=== PATIENT | female | born 1950 | race Caucasian/White ===

== ENCOUNTER 2018-06-16 07:36 | Outpatient (CLI) | payer MEDICARE, BC ==
--- NOTE | 2018-06-16 10:18 | MRI ---
MRI LEFT KNEE PERFORMED WITHOUT CONTRAST ENHANCEMENT: HISTORY: Left knee pain since March. FINDINGS: There is some increased signal change associated with the ACL. It is intact. This may indicate some mild degeneration. The posterior cruciate ligament does appear to be intact. The lateral meniscus has a normal shape and appearance. There is a posterior horn tear of the meniscus, which has a radial component to the tear. It is slig htly closer to the meniscal root but falls predominantly in the mid portion of the meniscus. It appe ars to extend approximately 50% into the width of the meniscus at this level. The tear has an irregu lar edge. There is minimal meniscal protrusion associated with this finding. The medial and lateral collateral ligaments and the iliotibial band regions are intact. The patellar articular cartilage shows some articular cartilage loss of the apex of the patella. The re is some minimal subchondral cystic change seen associated with this. The medial and lateral arnold lar retinaculum and quadriceps and patellar tendons are normal. A moderate joint effusion is seen, and there is a fairly prominent Copeland's cyst noted. IMPRESSION: 1. Posterior horn, medial meniscus tear, which is a slightly complex tear, but does appear to have s ome radial component to it. It involves more the mid portion of the meniscus. There is minimal meni scal protrusion associated with this finding. 2. Moderate joint effusion with a Copeland's cyst. 3. Increased signal change associated with the anterior cruciate ligament, suggesting some mucoid de generation. POS: [facility]
== END 2018-06-16 07:37 | disposition home or self-care (01) ==
LOC: TBSIIMAG 07:36
PROVIDERS: ATTEND Orthopaedic Surgery
DX: M25.562 Pain in left knee (principal); S83.242A Other tear of medial meniscus, current injury, left knee, initial encounter; M25.462 Effusion, left knee; M71.22 Synovial cyst of popliteal space [Baker], left knee

== ENCOUNTER 2018-08-07 12:21 | Outpatient (CLI) | payer MEDICARE, BC ==
[2018-08-07 13:18] LABS: Hemoglobin 15.5 g/dL (12.0-16.0); Mean Corpuscular HGB CONC 33.5 g/dL (32.0-36.0); Mean Corpuscular Hemoglobin 31.5 pg (27.0-31.0); Mean Corpuscular Volume 93.9 fL (78.0-98.0); Mean Platelet Volume 7.4 fL (7.4-10.4); Platelet Count 288 thou/uL (130-400); RBC Distribution Width 10.9 % (11.5-14.5); Red Blood Cell (RBC) Count 4.92 mill/uL (4.20-5.40); White Blood Cell (WBC) Count 6.9 thou/uL (4.8-10.8)
--- NOTE | 2018-08-09 06:28 | EKG ---
Test Reason : Blood Pressure : / mmHG Vent. Rate : 061 BPM Atrial Rate : 061 BPM P-R Int : 140 ms QRS Dur : 078 ms QT Int : 418 ms P-R-T Axes : 070 -16 044 degrees QTc Int : 420 ms Normal sinus rhythm Normal ECG When compared with ECG of 08-JUL-2014 11:50, No significant change was found Confirmed by FOX SEAY ([id number]) on 08/09/2018 6:28:39 AM Referred By: MARQUES Confirmed By:FOX SEAY
== END 2018-08-07 12:22 | disposition home or self-care (01) ==
LOC: LABBT 12:21
PROVIDERS: ATTEND Orthopaedic Surgery
DX: Z01.818 Encounter for other preprocedural examination (principal); S83.207A Unspecified tear of unspecified meniscus, current injury, left knee, initial encounter
CPT/HCPCS: 85027; 93005; 93010

== ENCOUNTER 2018-08-13 07:13 | Day surgery (SDC) | payer MEDICARE, BC ==
[2018-08-07 12:28] VITALS: BMI 26.6
[2018-08-13] MEDS ORDERED: CEFAZOLIN 2 GM/50 ML BAG ONE (07:35)
[2018-08-13] MEDS ORDERED: Midazolam HCl 2 mg/2 ml Vial ONE (08:40)
[2018-08-13] MEDS ORDERED: Bupivacaine/Epinephrine 0.25% 30 ML VIAL ONE (09:47)
[2018-08-13] MEDS ORDERED: Lidocaine 1% (PF) 30 ML VIAL ONE (09:47)
[2018-08-13] MEDS ORDERED: Fentanyl 100 MCG/2 ML VIAL ONE (11:02)
[2018-08-13] MEDS ORDERED: HYDROcodone/Acetaminophen 5/325 mg Tablet ONE (11:55)
--- NOTE | 2018-08-14 00:36 | OP ---
DATE OF PROCEDURE: 08/13/2018 PREOPERATIVE DIAGNOSES: 1. Right medial meniscus tear. 2. Grade 1 and 2 changes, patella and trochlear groove. 3. Grade 2 changes, medial femoral condyle. 4. Degenerative fraying of the lateral meniscus. PROCEDURE PERFORMED: Medial meniscus tear debridement and shaving. LIFT TRUCK MECHANIC: None. ANESTHESIOLOGIST: German. ANESTHESIA: The patient received a LMA with 30 mL of Marcaine 0.25% with epi preprocedure washed out and then 25 mL lidocaine plain postprocedure. ESTIMATED BLOOD LOSS: 25 mL. TOURNIQUET TIME: 16 minutes at 300 mmHg. ANTIBIOTICS: Ancef 2 g. COMPLICATIONS: None. INDICATIONS FOR PROCEDURE: Ms. Mccallum is a 68-year-old female, presented with medial knee pain. Had MRI evidence of medial meniscus tear as well, but no full-thickness cartilage defect. I discussed with her the risks and benefits that consist of medial meniscectomy, pain, scar, bleeding, infection, damage to vital structures, decreased range of motion and strength, continued pain despite surgical intervention. The patient desired to proceed with surgery. She would like to proceed. DESCRIPTION OF PROCEDURE: Time-out was performed confirming the patient's right lower extremity as the operative site based on site, consents, and marking. An anterolateral portal was placed and anteromedial was placed with a needle. We excised the fat pad, visualized the knee. The ACL and PCL were intact. 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 Nothing was noted in the gutters. I looked at lateral meniscus, just had some degenerative fraying, but no full-thickness cartilage defects. In the medial compartment, she had about a 12 x 10 mm defect in medial femoral condyle that was noted in the weightbearing surface in extension. The patient had a degenerative tear with a radial component and degeneration posteriorly. I cut the radial component and shaved it back to stable remnant. Debrided any of loose flap the cartilage on the patella and trochlear groove, but did not do any further shaving and then washed and closed. I injected Marcaine preprocedure and injected lidocaine after I had closed the knee, let the tourniquet down after 16 minutes. The patient will be weightbearing as tolerated and will follow up in clinic in 10 to 14 days. Job ID: [id number]
== END 2018-08-13 13:10 | disposition home or self-care (01) ==
LOC: SDC 07:13
PROVIDERS: ATTEND Orthopaedic Surgery
PROC: 0SBC4ZZ Excision of Right Knee Joint, Percutaneous Endoscopic Approach (ICD-10-PCS; principal; 2018-08-13)
DX: M23.300 Other meniscus derangements, unspecified lateral meniscus, right knee (principal); M23.321 Other meniscus derangements, posterior horn of medial meniscus, right knee; M22.41 Chondromalacia patellae, right knee
CPT/HCPCS: 29881; 96374; 97116; 97139; G8978; G8979; G8980; J2001; J2250; J3010